=== PATIENT | female | born 1945 | race Caucasian/White ===

== ENCOUNTER 2024-06-22 09:36 | Outpatient (CLI) | payer MEDICARE, OTHER ==
[2024-06-22] VITALS (17 sets, daily range): BP systolic 72–139; BP diastolic 37–80; PULSE 54–103
[~2024-06-22 09:36] MED LIST: ASCO-238 PO; COD1CAPS16 PO; ESTR1PAT96 TD; LEVO50TA PO; MAGN400C PO; NATURE THYROID PO; PROGESTERONE CREAM TOP; TESTOSTERONE GEL TOP
--- NOTE | 2024-06-23 19:20 | CARDIOLOGY REPORT ---
DATE OF SERVICE: 06/22/2024 DICTATING PHYSICIAN: JOSE Phipps MD CARDIAC TILT TABLE REPORT PRIMARY PHYSICIAN: HELGA Dominguez INTERPRETING PHYSICIAN: JOSE Phipps MD REASON FOR TESTING: Syncope, questionable postural orthostasis. DESCRIPTION OF PROCEDURE: In supine resting condition, the patient's heart rate of 68 and routine tilt table protocol was followed. FINDINGS: In supine resting condition, the patient's heart rate was 68, blood pressure was 113/69. The patient was asymptomatic. After 32 minutes of 70 degrees tilt, the patient's heart was 54 per minute with a blood pressure of 113/47. At 10 minutes into the test, the patient was dizzy and nauseated with mild tachycardia at 103 per minute and then subsequently, the patient's blood pressure dropped to 72/37, with heart rate of 88. The patient was put in recovery position until her blood pressure improved. In recovery condition, the patient's heart rate was 54 with blood pressure of 113/47. IMPRESSION: A 78-year-old female whose blood pressure dropped from 139/69 at supine resting condition to 72/37 at about 28 minutes into ____ and the patient was flushed, nauseated, hot and dizzy. The patient improved in supine recovery position. 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 Recommend clinical correlation. JOSE Phipps MD TID: [id number] RECEIPT: [id number] HATTIE/ANNMARIE/ANTON cc: HELGA Dominguez
== END 2024-06-22 23:59 | disposition home or self-care (01) ==
LOC: CARD DIAG 09:36
PROVIDERS: ATTEND Physician Assistant
DX: I95.1 Orthostatic hypotension (principal)
CPT/HCPCS: 93660